=== PATIENT | male | born 1970 | race African-American/Black ===

== ENCOUNTER 2024-11-15 15:15 | Inpatient (IN) | payer OTHER, MEDICAID ==
[~2024-11-15] VITALS: Ht 185.4 cm; Wt 138.3 kg
[2024-11-15 16:55] LABS: BASOPHILS % (AUTO) 0.6 % (0.0-2.0); EOSINOPHILS # (AUTO) 0.1 K/uL (0.0-0.7); EOSINOPHILS % (AUTO) 1.7 % (0.0-6.0); HEMATOCRIT 45 % (39-51); HEMOGLOBIN 14.8 g/dL (13.5-17.5); LYMPHOCYTES # (AUTO) 1.6 K/uL (0.8-4.8); LYMPHOCYTES % (AUTO) 23.6 % (20.0-44.0); MEAN CORPUSCULAR HEMOGLOBIN 27 PG (26.0-33.0); MEAN CORPUSCULAR HGB CONC 33 g/dl (31.0-36.0); MEAN CORPUSCULAR VOLUME 83 fL (80-96); MONOCYTES # (AUTO) 0.4 K/uL (0.1-1.30); MONOCYTES % (AUTO) 6.1 % (2.0-12.0); NEUTROPHILS # (AUTO) 4.7 K/uL (1.8-8.9); PLATELET COUNT (AUTO) 223 K/uL (150-450); RED BLOOD CELL COUNT(AUTO) 5.48 MIL/uL (4.5-6.0); RED CELL DISTRIBUTION WIDTH 13.6 % (11.5-15.0)
[2024-11-15 17:04] LABS: CALCIUM, SERUM 9.3 mg/dL (8.5-10.1); CARBON DIOXIDE 27 mmol/L (21-32); CHLORIDE 106 mmol/L (98-107); CREATININE 1.3 mg/dL (0.6-1.3); GLUCOSE 96 mg/dL (74-106); SODIUM SERUM 141 mmol/L (136-145); UREA NITROGEN, BLOOD 20 mg/dL (7-18)
[2024-11-15] MEDS ORDERED: hydrALAZINE HCL IV 20 MG VIAL ONE (17:08)
[2024-11-15] MEDS: hydrALAZINE HCL IV 20 MG VIAL IV ONE ×2 (17:12)
[2024-11-15] MEDS ORDERED: LABETALOL 20 MG/4 ML VIAL ONE (18:42)
[2024-11-15] MEDS: LABETALOL HCL IV 100MG VIAL IV ONE (18:50)
[2024-11-15] MEDS ORDERED: ACETAMINOPHEN 325 MG TABLET PO PRN (20:00)
[2024-11-15] MEDS ORDERED: MAG HYDROX/AL HYDROX/SIMETH 30 ML UDC PO PRN (20:00)
[2024-11-15] MEDS ORDERED: MAGNESIUM HYDROXIDE 30 ML UDC PO PRN (20:00)
[2024-11-15] MEDS ORDERED: ONDANSETRON HCL/PF 4 MG/2 ML VIAL IVP PRN (20:00)
[2024-11-15] MEDS: NICARDIPINE IV ONE (20:00)
[2024-11-15] MEDS ORDERED: HYDROCODONE/APAP 5/325MG TABLET PO PRN (20:00)
[2024-11-15] MEDS: SODIUM CHLORIDE IV ONE (20:00)
[2024-11-15] MEDS ORDERED: NICARDIPINE IN DEXTROSE,ISO-OS 200 ML IV ONE (23:38)
[2024-11-15] MEDS: NICARDIPINE IN NACL, ISO-OSM 200 ML IV PRN (23:42)
[2024-11-16] VITALS (48 sets, daily range): BP systolic 141–217; BP diastolic 73–134; TEMP 97.8–99.3; O2SAT 94–99
[2024-11-16] MEDS ORDERED: NICARDIPINE IN DEXTROSE,ISO-OS 200 ML IV ONE ×3 (01:37→04:35)
[2024-11-16 05:54] LABS: BASOPHILS % (AUTO) 0.3 % (0.0-2.0); EOSINOPHILS % (AUTO) 0.4 % (0.0-6.0); HEMATOCRIT 42 % (39-51); HEMOGLOBIN 14.1 g/dL (13.5-17.5); LYMPHOCYTES % (AUTO) 13.3 % (20.0-44.0); MEAN CORPUSCULAR HEMOGLOBIN 27 PG (26.0-33.0); MEAN CORPUSCULAR HGB CONC 34 g/dl (31.0-36.0); MEAN CORPUSCULAR VOLUME 81 fL (80-96); MONOCYTES # (AUTO) 0.4 K/uL (0.1-1.30); MONOCYTES % (AUTO) 4.9 % (2.0-12.0); NEUTROPHILS # (AUTO) 6.1 K/uL (1.8-8.9); NEUTROPHILS % (AUTO) 81.1 % (43.0-81.0); PLATELET COUNT (AUTO) 216 K/uL (150-450); RED BLOOD CELL COUNT(AUTO) 5.15 MIL/uL (4.5-6.0); RED CELL DISTRIBUTION WIDTH 13.2 % (11.5-15.0); WHITE BLOOD COUNT (AUTO) 7.6 K/uL (4.3-11.0)
[2024-11-16 06:18] LABS: MAGNESIUM 2.1 mg/dL (1.8-2.4); PHOSPHORUS 2.1 mg/dL (2.5-4.9); POTASSIUM 3.7 mmol/L (3.5-5.1)
[2024-11-16 07:31] LABS: CALCIUM, SERUM 8.6 mg/dL (8.5-10.1)
[2024-11-16] MEDS: PANTOPRAZOLE 40 MG VIAL IV SCH (08:22)
[2024-11-16] MEDS: AMLODIPINE BESYLATE 10 MG TABLET PO SCH (09:35)
[2024-11-16] MEDS: METOPROLOL TARTRATE 50 MG TABLET PO SCH (11:04)
[2024-11-16] MEDS: hydrALAZINE HCL 50 MG TABLET PO SCH (12:08)
[2024-11-16 14:34] LABS: THYROID STIMULATING HORMONE 1.11 uIU/mL (0.358-3.74)
[2024-11-16] MEDS: K PHOS NEUTRAL 250 MG TABLET PO ONE (17:11)
[2024-11-16 18:44] LABS: INR 1.03 (0.91-1.10); PARTIAL THROMBOPLASTIN TIME 26.8 SEC (24.3-34.3); PROTHROMBIN TIME 10.9 SECS (9.2-11.1)
[2024-11-16 19:16] LABS: CHOLESTEROL 151 mg/dL (<200); HDL CHOLESTEROL 51 mg/dL (40-60); LDL 91 mg/dL (0-99); TRIGLYCERIDES 55 mg/dL (30-150)
[2024-11-16] MEDS: ASPIRIN 81 MG TAB.CHEW PO SCH (19:17)
[2024-11-16] MEDS: CLOPIDOGREL BISULFATE 75 MG TABLET PO SCH (19:17)
[2024-11-17] VITALS (31 sets, daily range): BP systolic 134–206; BP diastolic 76–116; TEMP 98.1–98.6; O2SAT 92–100
[2024-11-17 05:19] LABS: BASOPHILS % (AUTO) 0.7 % (0.0-2.0); EOSINOPHILS # (AUTO) 0.2 K/uL (0.0-0.7); EOSINOPHILS % (AUTO) 3.3 % (0.0-6.0); HEMATOCRIT 41 % (39-51); LYMPHOCYTES # (AUTO) 1.7 K/uL (0.8-4.8); LYMPHOCYTES % (AUTO) 29.9 % (20.0-44.0); MEAN CORPUSCULAR HEMOGLOBIN 28 PG (26.0-33.0); MEAN CORPUSCULAR HGB CONC 34 g/dl (31.0-36.0); MEAN CORPUSCULAR VOLUME 81 fL (80-96); MONOCYTES # (AUTO) 0.4 K/uL (0.1-1.30); NEUTROPHILS # (AUTO) 3.4 K/uL (1.8-8.9); NEUTROPHILS % (AUTO) 59.1 % (43.0-81.0); PLATELET COUNT (AUTO) 222 K/uL (150-450); RED BLOOD CELL COUNT(AUTO) 5.07 MIL/uL (4.5-6.0); RED CELL DISTRIBUTION WIDTH 13.4 % (11.5-15.0); WHITE BLOOD COUNT (AUTO) 5.7 K/uL (4.3-11.0)
[2024-11-17 05:34] LABS: CALCIUM, SERUM 8.6 mg/dL (8.5-10.1); CREATININE 1.3 mg/dL (0.6-1.3); MAGNESIUM 2.2 mg/dL (1.8-2.4); PHOSPHORUS 2.6 mg/dL (2.5-4.9); POTASSIUM 3.8 mmol/L (3.5-5.1)
[2024-11-17] MEDS: MINOXIDIL (2.5MG) 2.5 MG TABLET PO SCH (10:30)
[2024-11-17] MEDS: SIMVASTATIN 20 MG TABLET PO SCH (21:07)
[2024-11-17] MEDS ORDERED: hydrALAZINE HCL IV 20 MG VIAL IV PRN (23:00)
[2024-11-17] MEDS: hydrALAZINE HCL IV 20 MG VIAL IV PRN (23:00)
[2024-11-18] VITALS (16 sets, daily range): BP systolic 150–218; BP diastolic 84–116; TEMP 97.9–98.4; O2SAT 96–100
[2024-11-18 06:01] LABS: BASOPHILS % (AUTO) 0.9 % (0.0-2.0); EOSINOPHILS # (AUTO) 0.2 K/uL (0.0-0.7); EOSINOPHILS % (AUTO) 3.8 % (0.0-6.0); HEMATOCRIT 44 % (39-51); HEMOGLOBIN 14.7 g/dL (13.5-17.5); LYMPHOCYTES # (AUTO) 1.6 K/uL (0.8-4.8); LYMPHOCYTES % (AUTO) 32.3 % (20.0-44.0); MEAN CORPUSCULAR HEMOGLOBIN 27 PG (26.0-33.0); MEAN CORPUSCULAR HGB CONC 33 g/dl (31.0-36.0); MEAN CORPUSCULAR VOLUME 81 fL (80-96); MONOCYTES # (AUTO) 0.4 K/uL (0.1-1.30); MONOCYTES % (AUTO) 7.7 % (2.0-12.0); NEUTROPHILS # (AUTO) 2.7 K/uL (1.8-8.9); NEUTROPHILS % (AUTO) 55.3 % (43.0-81.0); PLATELET COUNT (AUTO) 222 K/uL (150-450); RED BLOOD CELL COUNT(AUTO) 5.44 MIL/uL (4.5-6.0); RED CELL DISTRIBUTION WIDTH 13.2 % (11.5-15.0); WHITE BLOOD COUNT (AUTO) 4.9 K/uL (4.3-11.0)
[2024-11-18 06:34] LABS: CALCIUM, SERUM 8.7 mg/dL (8.5-10.1); MAGNESIUM 2.1 mg/dL (1.8-2.4); PHOSPHORUS 2.6 mg/dL (2.5-4.9); POTASSIUM 3.5 mmol/L (3.5-5.1)
[2024-11-19] VITALS: BP 175/98; TEMP 97.8; O2SAT 99
[2024-11-19 04:00] VITALS: BP 166/98; TEMP 97.8; O2SAT 99
[2024-11-19 07:07] LABS: BASOPHILS % (AUTO) 0.6 % (0.0-2.0); EOSINOPHILS # (AUTO) 0.2 K/uL (0.0-0.7); EOSINOPHILS % (AUTO) 4.8 % (0.0-6.0); HEMATOCRIT 45 % (39-51); LYMPHOCYTES # (AUTO) 1.9 K/uL (0.8-4.8); LYMPHOCYTES % (AUTO) 36.4 % (20.0-44.0); MEAN CORPUSCULAR HEMOGLOBIN 27 PG (26.0-33.0); MEAN CORPUSCULAR HGB CONC 34 g/dl (31.0-36.0); MEAN CORPUSCULAR VOLUME 81 fL (80-96); MONOCYTES # (AUTO) 0.4 K/uL (0.1-1.30); MONOCYTES % (AUTO) 7.7 % (2.0-12.0); NEUTROPHILS # (AUTO) 2.6 K/uL (1.8-8.9); NEUTROPHILS % (AUTO) 50.5 % (43.0-81.0); PLATELET COUNT (AUTO) 222 K/uL (150-450); RED BLOOD CELL COUNT(AUTO) 5.54 MIL/uL (4.5-6.0); RED CELL DISTRIBUTION WIDTH 13.1 % (11.5-15.0); WHITE BLOOD COUNT (AUTO) 5.2 K/uL (4.3-11.0)
[2024-11-19 08:00] VITALS: BP 170/104; TEMP 98.2; O2SAT 99
[2024-11-19 08:08] LABS: CALCIUM, SERUM 9.4 mg/dL (8.5-10.1); CREATININE 1.1 mg/dL (0.6-1.3); MAGNESIUM 2.3 mg/dL (1.8-2.4); PHOSPHORUS 3.3 mg/dL (2.5-4.9); POTASSIUM 3.8 mmol/L (3.5-5.1)
[2024-11-19] MEDS: ISOSORBIDE DINITRATE (20MG) 20 MG TABLET PO SCH (10:19)
[2024-11-19] MEDS: hydrALAZINE HCL 50 MG TABLET PO SCH (10:20)
[2024-11-19 12:00] VITALS: BP 134/77; TEMP 98.3; O2SAT 99
[2024-11-19 16:00] VITALS: BP 135/77; TEMP 98.4; O2SAT 99
[2024-11-19 20:00] VITALS: BP 135/75; TEMP 98.2; O2SAT 98
[2024-11-20] VITALS: BP 123/71; TEMP 98.2; O2SAT 98
[2024-11-20 04:00] VITALS: BP 152/92; TEMP 98.2; O2SAT 99
[2024-11-20 07:28] LABS: BASOPHILS % (AUTO) 0.7 % (0.0-2.0); EOSINOPHILS # (AUTO) 0.2 K/uL (0.0-0.7); EOSINOPHILS % (AUTO) 3.2 % (0.0-6.0); HEMATOCRIT 42 % (39-51); LYMPHOCYTES # (AUTO) 1.7 K/uL (0.8-4.8); LYMPHOCYTES % (AUTO) 28.8 % (20.0-44.0); MEAN CORPUSCULAR HEMOGLOBIN 27 PG (26.0-33.0); MEAN CORPUSCULAR HGB CONC 34 g/dl (31.0-36.0); MEAN CORPUSCULAR VOLUME 80 fL (80-96); MONOCYTES # (AUTO) 0.4 K/uL (0.1-1.30); MONOCYTES % (AUTO) 7.4 % (2.0-12.0); NEUTROPHILS # (AUTO) 3.6 K/uL (1.8-8.9); NEUTROPHILS % (AUTO) 59.9 % (43.0-81.0); PLATELET COUNT (AUTO) 221 K/uL (150-450); RED CELL DISTRIBUTION WIDTH 13.1 % (11.5-15.0)
[2024-11-20 07:41] LABS: CALCIUM, SERUM 8.7 mg/dL (8.5-10.1); CREATININE 1.2 mg/dL (0.6-1.3); MAGNESIUM 2.2 mg/dL (1.8-2.4); PHOSPHORUS 3.1 mg/dL (2.5-4.9); POTASSIUM 3.4 mmol/L (3.5-5.1)
[2024-11-20 08:00] VITALS: BP 169/110; TEMP 97.6; O2SAT 99
[2024-11-20 12:00] VITALS: BP 142/72; TEMP 97.8; O2SAT 99
[2024-11-20] MEDS: POTASSIUM CHLORIDE 20 MEQ TAB.PRT.SR PO ONE (12:11)
[2024-11-20] MEDS: hydrALAZINE HCL 50 MG TABLET PO SCH (12:12)
[2024-11-20 16:00] VITALS: BP 137/78; TEMP 98.2; O2SAT 98
[2024-11-20 20:00] VITALS: BP 117/61; TEMP 97.5; O2SAT 95
[2024-11-21] VITALS: BP 139/71; TEMP 97.8; O2SAT 98
[2024-11-21 04:00] VITALS: BP 138/85; TEMP 97.8; O2SAT 100
[2024-11-21 08:00] VITALS: BP 161/91; TEMP 98; O2SAT 100
[2024-11-21] MEDS: NIFEdipine XL (30MG) 30 MG TAB PO SCH (10:23)
[2024-11-21 12:00] VITALS: BP 159/92; TEMP 97.6; O2SAT 100
[2024-11-21] MEDS ORDERED: ISOS20TA8 PO (15:03)
[2024-11-21] MEDS ORDERED: NIFE-35 PO (15:03)
[2024-11-21] MEDS ORDERED: ASPI-1169 PO (15:03)
[2024-11-21] MEDS ORDERED: HYDR-4077 PO (15:03)
[2024-11-21] MEDS ORDERED: METO50TA16 PO (15:03)
[2024-11-21] MEDS ORDERED: SIMV-46 PO (15:03)
[2024-11-21] MEDS ORDERED: MINO2.5T PO (15:03)
[2024-11-21] MEDS ORDERED: CLOP75TA15 PO (15:03)
[2024-11-21 16:00] VITALS: BP 173/103; TEMP 98; O2SAT 100
[2024-11-21 20:00] VITALS: BP 116/70; TEMP 98.6; O2SAT 96
[2024-11-22] VITALS: BP 147/75; TEMP 98.8; O2SAT 96
[2024-11-22 04:05] VITALS: BP 159/90; TEMP 98.4; O2SAT 95
[2024-11-22 12:00] VITALS: BP 127/68; TEMP 98.9; O2SAT 97
[2024-11-22 13:28] VITALS: BP 124/86
[2024-11-23] MEDS ORDERED: METO50TA16 PO (16:47)
[2024-11-23] MEDS ORDERED: CLOP75TA15 PO (16:47)
[2024-11-23] MEDS ORDERED: SIMV-46 PO (16:47)
[2024-11-23] MEDS ORDERED: NIFE-35 PO (16:47)
[2024-11-23] MEDS ORDERED: ISOS20TA8 PO (16:47)
[2024-11-23] MEDS ORDERED: HYDR-4077 PO (16:47)
[2024-11-23] MEDS ORDERED: MINO2.5T PO (16:47)
[2024-11-23] MEDS ORDERED: ASPI-1169 PO (16:47)
== END 2024-11-22 15:28 | DRG 45 ==
LOC: ER 15:19 → ICU 11-16 → TELE1 11-16 14:06 → ICU 11-16 18:58 → TELE-TD 11-18 11:34 → TELE1 11-19 10:06 → MEDSG1 11-21 09:29
PROVIDERS: ATTEND Nurse Practitioner Acute Care
DX: I63.81 Other cerebral infarction due to occlusion or stenosis of small artery (principal); N17.0 Acute kidney failure with tubular necrosis; I16.1 Hypertensive emergency; E78.5 Hyperlipidemia, unspecified; I10 Essential (primary) hypertension; R29.704 NIHSS score 4; Z68.41 Body mass index [BMI] 40.0-44.9, adult; E66.01 Morbid (severe) obesity due to excess calories; G47.33 Obstructive sleep apnea (adult) (pediatric); E87.6 Hypokalemia; Z86.73 Personal history of transient ischemic attack (TIA), and cerebral infarction without residual deficits; Z79.899 Other long term (current) drug therapy; Z79.82 Long term (current) use of aspirin; Z79.02 Long term (current) use of antithrombotics/antiplatelets
CPT/HCPCS: 36415; 70450-TC; 70496-TC; 70498-TC; 71045-TC; 80048-TC; 80061-TC; 82962-TC; 83615-TC; 83735-TC; 83880; 84100-TC; 84443-TC; 84484-TC; 85025-TC; 85610-TC; 85730-TC; 87081-TC; 92507-TC; 92521; 92526; 92611-TC; 93307-TC; 97110-TC; 97112-TC; 97116-TC; 97164; 97530-TC; 97535-TC; A4223; G0378; J0360; J2470; J3490

== ENCOUNTER 2024-11-23 14:17 | Emergency (ER) | payer MEDICAID ==
[~2024-11-23] VITALS: Ht 185.4 cm; Wt 144.2 kg
[~2024-11-23 14:17] MED LIST: ASPI-1169 PO; CLOP75TA15 PO; HYDR-4077 PO; ISOS20TA8 PO; METO50TA16 PO; MINO2.5T PO; NIFE-35 PO; SIMV-46 PO
[2024-11-23] MEDS ORDERED: ACETAMINOPHEN ES 500 MG TABLET ONE (15:49)
[2024-11-23] MEDS: ACETAMINOPHEN ES 500 MG TABLET PO ONE (15:54)
[2024-11-23] MEDS ORDERED: METO50TA16 PO (16:47)
[2024-11-23] MEDS ORDERED: CLOP75TA15 PO (16:47)
[2024-11-23] MEDS ORDERED: NIFE-35 PO (16:47)
[2024-11-23] MEDS ORDERED: MINO2.5T PO (16:47)
[2024-11-23] MEDS ORDERED: ASPI-1169 PO (16:47)
[2024-11-23] MEDS ORDERED: ISOS20TA8 PO (16:47)
[2024-11-23] MEDS ORDERED: SIMV-46 PO (16:47)
[2024-11-23] MEDS ORDERED: HYDR-4077 PO (16:47)
[2024-11-23 22:38] VITALS: BP 156/106; TEMP 98.3; O2SAT 97
== END 2024-11-23 22:39 | disposition home or self-care (01) ==
LOC: ER 15:22
DX: S30.0XXA Contusion of lower back and pelvis, initial encounter (principal); S09.8XXA Other specified injuries of head, initial encounter; I10 Essential (primary) hypertension; Z79.02 Long term (current) use of antithrombotics/antiplatelets; Z79.82 Long term (current) use of aspirin; Z79.899 Other long term (current) drug therapy; Z86.73 Personal history of transient ischemic attack (TIA), and cerebral infarction without residual deficits; Z86.79 Personal history of other diseases of the circulatory system; X58.XXXA Exposure to other specified factors, initial encounter; Y93.89 Activity, other specified; Y92.89 Other specified places as the place of occurrence of the external cause; Y99.8 Other external cause status
CPT/HCPCS: 70450-TC; 72131-TC